=== PATIENT | female | born 1955 | race Caucasian/White ===

== ENCOUNTER → 2021-09-22 | Day surgery (SDC) | payer MEDICARE ==
[~2021-09-22] VITALS: Ht 170.2 cm; Wt 95.2 kg
[~2021-09-22] MED LIST: ACETAMINOPHEN500 M1 PO; AMLODIPINE BESY10 MG PO; COLACE100 MG PO; LISINOPRIL20 MG PO; MOTRIN600 MG PO; ULTRAM50 MG PO; VENLAFAXINE H37.5 M1 PO
== END | disposition home or self-care (01) ==
LOC: FAS 06:40
DX: D05.12 Intraductal carcinoma in situ of left breast (principal); J45.909 Unspecified asthma, uncomplicated; I10 Essential (primary) hypertension; Z88.5 Allergy status to narcotic agent
CPT/HCPCS: 76098; 77065; J0690; J1100; J1644; J1885; J2001; J2250; J2405; J3010; J7120

== ENCOUNTER → 2021-10-20 | Day surgery (SDC) | payer MEDICARE ==
[~2021-10-20] VITALS: Ht 170.2 cm; Wt 95.2 kg
[~2021-10-20] MED LIST changes: +ASCORBIC ACID500 MG PO; +BIOTIN1000 MCG PO; +CENTRUM ADULTS1 EACH PO; +CLARITIN10 MG PO; +FOLIC ACID0.4 MG PO; +VITAMIN D350 MC3 PO
[2021-10-20 07:40] LABS: BUN/CREAT RATIO (CALC) 23.5 RATIO; CREATININE 0.85 mg/dL (0.51-0.95); POTASSIUM 3.8 mmol/L (3.5-5.1)
== END | disposition home or self-care (01) ==
LOC: FAS 06:39
PROVIDERS: Anesthesiology
DX: N60.32 Fibrosclerosis of left breast (principal); N64.1 Fat necrosis of breast; C50.912 Malignant neoplasm of unspecified site of left female breast; Z88.5 Allergy status to narcotic agent
CPT/HCPCS: 36415; 76098; 80048; 93005; A9541; J0690; J1100; J1644; J1885; J2250; J2405; J2550; J2704; J3010; J7120; Q9968